=== PATIENT | male | born 1960 | race African-American/Black ===

== ENCOUNTER 2018-01-31 10:08 | Emergency (ER) | payer SELFPAY ==
--- NOTE | 2018-01-31 10:50 | ER ---
Nurse's Notes [facility] Name: Nolberto Simon Age: 57 yrs Sex: Male : 1960 Arrival Date: 01/31/2018 Time: 10:12 Bed 10 Private MD: None, None Diagnosis: Plantar wart Presentation: 01/31 10:28 Presenting complaint: Patient states: " My foot has been hurting me, there's a bone ph sticking out or something." Reports pain to L foot, no bone noted to be protruding w/ wart-like growth present to sole of foot near heel, pt also reports pain and numbness to ball of foot, states, " It's been going on for a while." Denies hx of diabetes. Transition of care: patient was not received from another setting of care. Onset of symptoms was January 31, 2018. Risk Assessment: Do you want to hurt yourself or someone else? Patient reports no desire to harm self or others. Initial Sepsis Screen: Does the patient meet any 2 criteria? No. Patient's initial sepsis screen is negative. Does the patient have a suspected source of infection? No. Patient's initial sepsis screen is negative. Care prior to arrival: None. 10:28 Method Of Arrival: Ambulatory ph 10:28 Acuity: HEMANT 4 ph Historical: - Allergies: 10:32 No Known Allergies; ph - Home Meds: 10:32 None [Active]; ph - PMHx: 10:32 None; ph - PSHx: 10:32 None; ph - Immunization history:: Adult Immunizations unknown. - Social history:: Smoking status: Patient uses tobacco products, smokes one-half pack cigarettes per day. - Ebola Screening: : No symptoms or risks identified at this time. Screenin:40 Abuse screen: Denies threats or abuse. Denies injuries from another. Nutritional ss screening: No deficits noted. Tuberculosis screening: Never had TB. Fall Risk None identified. Assessment: 10:40 General: Appears in no apparent distress. comfortable, Behavior is calm, cooperative. ss Pain: Complains of pain in left foot Pain currently is 6 out of 10 on a pain scale. Quality of pain is described as tender, Is continuous. Neuro: Level of Consciousness is awake, alert, obeys commands, Oriented to person, place, time, situation. Cardiovascular: Capillary refill < 3 seconds is brisk in bilateral fingers. Respiratory: Respiratory effort is even, unlabored, Respiratory pattern is regular, symmetrical. Derm: Skin is pink, warm \\T\\ dry. normal. Musculoskeletal: Circulation, motion, and sensation intact. Range of motion: intact in all extremities, Swelling absent. Vital Signs: 10:32 BP 140 / 98; Pulse 77; Resp 18; Temp 98.1; Pulse Ox 96% on R/A; Weight 65.77 kg; Pain ph 6/10; ED Course: 10:12 Patient arrived in ED. sb2 10:12 None, None is Private Physician. sb2 10:26 Philip Bobo PA is PHCP. [facility] 10:26 Lee Trinidad MD is Attending Physician. [facility] 10:28 Kayleen Blakely, RN is Primary Nurse. ph 10:32 Triage completed. ph 10:33 Arm band placed on. ph 10:40 Patient has correct armband on for positive identification. Bed in low position. Call ss light in reach. 10:49 Paul Toth DPM is Referral Physician. [facility] 10:56 No provider procedures requiring assistance completed. Patient did not have IV access ss during this emergency room visit. Administered Medications: No medications were administered Outcome: 10:49 Discharge ordered by . [facility] 10:56 Discharged to home ambulatory, with family. 10:56 Condition: good 10:56 Discharge instructions given to patient, family, Instructed on discharge instructions, follow up and referral plans. Demonstrated understanding of instructions, follow-up care. 11:00 Patient left the ED. ss Signatures: Philip Bobo PA PA jmm Smirch, Shelby, RN RN Kayleen Blakely, RN RN Vitaly Fami sb2
--- NOTE | 2018-01-31 10:50 | EDPHYS ---
Physician Documentation [facility] Name: Nolberto Simon Age: 57 yrs Sex: Male : 1960 Arrival Date: 01/31/2018 Time: 10:12 Bed 10 Private MD: None, None ED Physician Lee Trinidad HPI: 01/31 10:43 This 57 yrs old Black Male presents to ER via Ambulatory with complaints of Foot Pain. jmm 10:43 The patient presents with pain, that is chronic. Onset: The symptoms/episode jmm began/occurred at an unknown time. Modifying factors: The symptoms are alleviated by elevating leg, the symptoms are aggravated by weight bearing. Associated signs and symptoms: Pertinent negatives fever. This is a 57 year old male with no known chronic medical conditions presents to the ED with chronic left foot pain. Patient complains of a mass protruding from his left foot. . Historical: - Allergies: 10:32 No Known Allergies; ph - Home Meds: 10:32 None [Active]; ph - PMHx: 10:32 None; ph - PSHx: 10:32 None; ph - Immunization history:: Adult Immunizations unknown. - Social history:: Smoking status: Patient uses tobacco products, smokes one-half pack cigarettes per day. - Ebola Screening: : No symptoms or risks identified at this time. ROS: 10:43 Constitutional: Negative for fever, chills, and weight loss, Cardiovascular: Negative jmm for chest pain, palpitations, and edema, Respiratory: Negative for shortness of breath, cough, wheezing, and pleuritic chest pain. 10:43 MS/extremity: Positive for pain. 10:43 All other systems are negative. Exam: 10:43 Constitutional: This is a well developed, well nourished patient who is awake, alert, jmm and in no acute distress. Head/Face: atraumatic. Eyes: EOMI, no conjunctival erythema appreciated ENT: Moist Mucus Membranes Neck: Trachea midline, Supple Chest/axilla: Normal chest wall appearance and motion. Cardiovascular: Regular rate and rhythm. No edema appreciated Respiratory: Normal respirations, no respiratory distress appreciated Abdomen/GI: Non distended, soft Skin: General appearance color normal 10:43 Musculoskeletal/extremity: plantar wart noted to the heel and ball of the left foot, compartments are soft, full dorsalis pedis pulse, NVI. 10:43 Skin: plantar wart noted to the ball and heel of the left foot. 10:43 Neuro: Orientation: is normal, Mentation: is normal, Memory: is normal. 10:43 Psych: Behavior/mood is pleasant, cooperative. Vital Signs: 10:32 BP 140 / 98; Pulse 77; Resp 18; Temp 98.1; Pulse Ox 96% on R/A; Weight 65.77 kg; Pain ph 6/10; MDM: 10:43 Patient medically screened. [facility] 10:49 Data reviewed: vital signs, nurses notes. Counseling: I had a detailed discussion with reagan the patient and/or guardian regarding: the historical points, exam findings, and any diagnostic results supporting the discharge/admit diagnosis, the need for outpatient follow up, to return to the emergency department if symptoms worsen or persist or if there are any questions or concerns that arise at home. Administered Medications: No medications were administered Disposition: 02/01 07:33 Co-signature as Attending Physician, Lee Trinidad MD I agree with the assessment and kdr plan of care. Disposition: 01/31/18 10:49 Discharged to Home. Impression: Plantar wart. - Condition is Stable. - Discharge Instructions: Plantar Warts. - Medication Reconciliation Form, Thank You Letter, Antibiotic Education, Prescription Opioid Use form. - Follow up: Paul Toth DPM; When: 1 - 2 days; Reason: Recheck today's complaints, Continuance of care, Re-evaluation by your physician. Signatures: Lee Trinidad MD MD kdr Mickail, Joel, PA PA [facility] Caro Jeffries RN RN ss Kayleen Blakely, RN RN ph Corrections: (The following items were deleted from the chart) 01/31 11:00 10:49 01/31/2018 10:49 Discharged to Home. Impression: Plantar wart. Condition is ss Stable. Forms are Medication Reconciliation Form, Thank You Letter, Antibiotic Education, Prescription Opioid Use. Follow up: Paul Toth; When: 1 - 2 days; Reason: Recheck today's complaints, Continuance of care, Re-evaluation by your physician. [facility]
[2018-01-31 11:10] VITALS: BP 140/98; TEMP 98.1; O2SAT 96
== END 2018-01-31 11:00 | disposition home or self-care (01) ==
LOC: ER 10:08
DX: B07.0 Plantar wart (principal); F17.210 Nicotine dependence, cigarettes, uncomplicated
CPT/HCPCS: 99281